=== PATIENT | female | born 1985 | race Caucasian/White ===

== ENCOUNTER → 2021-06-26 | Outpatient (CLI) | payer OTHER ==
--- NOTE | 2021-06-26 16:05 | RAD ---
EXAM: Left elbow, 4 views. HISTORY: Fall. Pain. COMPARISON: None. FINDINGS: 4 views of the left elbow are obtained. There is no fracture, dislocation or subluxation. T here is no joint effusion. IMPRESSION: No acute osseous finding. Electronically signed by: Marcela Cope MD (06/26/2021 4:02 PM) [id number]
== END ==
LOC: RAD 15:18
PROVIDERS: ATTEND Nurse Practitioner Family
DX: M25.552 Pain in left hip (principal); W19.XXXA Unspecified fall, initial encounter
CPT/HCPCS: 73080